=== PATIENT | female | born 1950 | race Caucasian/White ===

== ENCOUNTER 2017-02-01 09:06 | Outpatient (CLI) | payer MEDICARE, BC ==
[~2017-02-01] VITALS: Ht 167.6 cm; Wt 119.1 kg
--- NOTE | ~2017-02-01 | HEMODYNAMI ---
PATIENT:CLAYTON REIS MEDICAL RECORD: [id number] : 50 LOCATION:[facility] ADMISSION DATE: 02/01/17 Generatedon:02/01/201713:00 Patient name: CLAYTON REIS Patient #: [id number] SSN: : 1950 Date of study: 02/01/2017 Page: Of Hemodynamic Procedure Report Patient Data Patient Demographics Procedure consent was obtained First Name: CLAYTON Gender: Female Last Name: SMILEY : 1950 Middle Initial: S Age: 66 year(s) Patient #: [id number] Race: Unknown Additional ID: [id number] Contact details Address: [place] [address] State: [place] City: [place] Zip code: [address] Past Medical History Allergies Allergen Reaction Date Comments Reported Other allergy 02/01/2017 Demerol,BEAN Inhibitors Admission Admission Data Admission Date: 02/01/2017 Admission Time: 9:06 Height (in.): 66 BSA: 2.24 (m2) Height (cm.): 167.64 BMI: 42.29 (kg/m2) Weight (lbs.): 262 Weight (kg.): 118.84 Lab Results Lab Result Date: 02/01/2017 Lab Result Time: 9:20 Biochemistry Name Units Result Min Max BUN mg/dl 13 --(--*-)-- 7 18 CK-MB ng/ml 0.9 --(*---)-- 0 3.6 Creatinine mg/dl 1 --(--*-)-- 0.6 1.3 Creatinine l 65 --(*---)-- 21 215 Kinase Troponin l ng/ml 0.017 --(-*--)-- 0 0.06 CBC Name Units Result Min Max Hematocrit % 46 --(-*--)-- 42 54 Hemoglobin g/dl 15.1 --(-*--)-- 13.5 17.5 Procedure Procedure Types Cath Procedure Diagnostic Procedure [facility] w/Coronaries PCI Procedure Coronary Stent Initial Miscellaneous Procedures Moderate Sedation up to 15 minutes Procedure Description Procedure Date Procedure Date: 02/01/2017 Procedure Start Time: 12:46 Procedure End Time: 12:59 Procedure Staff Name Function Raheem Mao MD Performing Physician Jenna Sweeney RN Nurse Sander Tian RT Monitor Evgeny Mcdowell RT Scrub Procedure Data Cath Procedure Fluoroscopy Diagnostic fluoroscopy Total fluoroscopy Time: 2.6 time: 2.6 min min Diagnostic fluoroscopy Total fluoroscopy dose: 396 dose: 396 mGy mGy Contrast Material Contrast Material Type Amount (ml) Isovue 300 87 Entry Location Entry Primary Successful Side Size Upsize Upsize Entry Closure Succes sful Closure Location (Fr) 1 (Fr) 2 (Fr) Remarks Device Remarks Femoral Right 5 Fr 6 Fr Exoseal artery Short Estimated blood loss: 10 ml Diagnostic catheters Device Type Used For End Catheter Placement Cordis 5Fr Pigtail Procedure Catheter (MP) Cordis 5Fr JL 4.0 Procedure Catheter (MP) Cordis 5Fr 3DRC Catheter Procedure (MP) Procedure Complications No complications Procedure Medications Medication Administration Route Dosage Oxygen NC 2 l/min Heparin Flush Bag added to field 2 bags (1000units/500ml NS) Lidocaine 2% added to field 20 Versed I.V. 1 mg Fentanyl I.V. 50 mcg Versed I.V. 1 mg Fentanyl I.V. 50 mcg Heparin Bolus I.V. 4000 units Versed I.V. 1 mg Fentanyl I.V. 50 mcg Hemodynamics Rest BSA: 2.24 (m2) HGB: 15.1 (g/dl) O2 Consumption: Estimated: 228.48 (ml/min) O2 Co nsumption indexed: Estimated:102 (ml/min/m) Heart Rate: 93 (bpm) Snapshots Pre Cath Intra NCS Post Cath Vital Signs Time Heart Resp SPO2 etCO2 CD6mquv NIBP (mmHg) Rhythm Pain Sedation Rate (ipm) (%) (mmHg) (mmHg) Status Level (bpm) 12:36:58 95 17 96 0 0 138/93(115) NSR 0 (11) 10(A) , No pain 12:41:14 96 15 99 0 0 143/91(117) NSR 0 (11) 10(A) , No pain 12:45:30 91 16 98 0 0 121/71(102) NSR 0 (11) 10(A) , No pain 12:49:44 90 17 98 0 0 117/78(97) NSR 0 (11) 9(A) , No pain 12:53:52 96 16 96 0 0 107/80(99) NSR 0 (11) 9(A) , No pain 12:56:50 100 16 95 0 0 125/81(106) NSR 0 (11) 10(A) , No pain Medications Time Medication Route Dose Verified Delivered Reason Notes Effectiveness by by 12:38:42 Oxygen NC 2 Raheem Jenna Per physician l/min Daylin Sweeney RN 12:38:51 Heparin Flush added 2 Raheem Raheem used for Bag to bags Daylin Mao MD procedure (1000units/500ml field NS) 12:38:58 Lidocaine 2% added 20ml Raheem Raheem used for to vial Daylin Mao MD procedure field 12:45:00 Versed I.V. 1 mg Raheem Jenna for sedation Daylin Sweeney RN 12:45:07 Fentanyl I.V. 50 Raheem Jenna for sedation mcg Daylin Sweeney RN 12:47:04 Versed I.V. 1 mg Raheem Jenna for sedation Daylin Sweeney RN 12:47:15 Fentanyl I.V. 50 Raheem Jenna for sedation mcg Daylin Sweeney RN 12:49:06 Versed I.V. 1 mg Raheem Jenna for sedation Daylin Sweeney RN 12:49:13 Fentanyl I.V. 50 Raheem Jenna for sedation mcg Daylin Sweeney RN 12:51:46 Heparin Bolus I.V. 4000 Raheem Jenna for dose units Daylin Sweeney RN anticoagulation verified [facility] dr mao Procedure Log Time Note 12:10:06 Evgeny Mcdowell RT(R) sent for patient. Start room use. 12:22:07 Time tracking: Regular hours 12:22:12 Plan of Care:Hemodynamics will remain stable., Cardiac rhythm will remain stable., Comfort level will be maintained., Respiratory function will remain adequate., Patient/ family verbilizes understanding of procedure., Procedure tolerated without complication., Recovers from procedure without complications.. 12:30:12 Patient received from Pre/Post Procedure Room to CCL 1 Alert and oriented. Tansferred to table in Supine position. 12:34:22 Warm blankets applied, and jennifer hugger turned on for patient comfort. 12:34:22 Correct patient and procedure confirmed by team. 12:34:23 Signed procedure consent form obtained from patient. 12:34:24 ECG and BP/O2 sat monitors applied to patient. 12:35:47 Vital chart was started 12:35:49 Baseline sample Acquired. 12:35:55 Rhythm: sinus rhythm 12:35:58 Full Disclosure recording started 12:38:42 Oxygen 2 l/min NC was administered by Jenna Sweeney RN; Per physician; 12:38:51 Heparin Flush Bag (1000units/500ml NS) 2 bags added to field was administered by Raheem Mao MD; used for procedure; 12:38:58 Lidocaine 2% 20ml vial added to field was administered by Raheem Mao MD; used for procedure; 12:42:52 H&P Date Dictated: 01/30/2017 Within 30 days and on chart., H&P Addendum completed by physician on day of procedure. (MUST COMPLETE FOR ALL OUTPATIENTS). 12:42:54 Pre-procedure instructions explained to patient. 12:42:55 Family in waiting room. 12:42:56 Patient NPO since Midnight. 12:43:11 Patient allergic to Other allergyDemerol,BEAN Inhibitors 12:43:14 Is the patient allergic to Iodine/contrast media? No. 12:43:15 Is patient on blood thinner?Yes 12:43:17 ACC The patient was administered the following blood thiners within the last 24 hours: ACCPlavix 12:43:20 Patient diabetic? No. 12:43:47 Previous problem with sedation/anesthesia? Yes Difficulty waking up / Low BP 12:43:50 Snore? Yes 12:43:51 Sleep apnea? Yes 12:43:52 Deviated septum? No 12:43:53 Opens mouth fully? Yes 12:43:54 Sticks out tongue? Yes 12:44:01 Airway obstruction? Yes Asthma 12:44:15 Dentures? No ? 12:44:17 Pre procedure: right dorsailis pedis pulse 2+ Normal; easily identifiable; not easily obliterated 12:44:19 Patient pain scale 0/10 ?. 12:44:24 IV patent on arrival in left wrist with 0.9% NaCl at KVO. 12:44:30 Lab results completed and on chart. 12:44:33 Right groin area was prepped with chlora-prep and draped in sterile fashion 12:44:34 Alarms reviewed by R. N. 12:44:34 Sharps counted by scrub and verified by R.N. 12:44:39 Use device set Femoral Dx 12:44:40 Tegaderm 4 x 4 opened to sterile field. 12:44:41 Acist Manifold opened to sterile field. 12:44:42 Acist Hand Control opened to sterile field. 12:44:42 Acist Syringe opened to sterile field. 12:44:43 Bag Decanter opened to sterile field. 12:44:43 Medline Cath Pack opened to sterile field. 12:44:44 Terumo 5Fr [place] Sheath opened to sterile field. 12:44:44 St Griffin 260cm J .035 wire opened to sterile field. 12:44:45 Diagnostic Infinity 5Fr Multipack catheter opened to sterile field. 12:44:52 Physician arrived 12:44:53 --------ALL STOP TIME OUT------ 12:44:53 Final Timeout: patient, procedure, and site verified with staff and physician. All members of the team are in agreement. 12:44:55 Right groin site verified by team. 12:44:57 Physical assessment completed. ASA score P 2 - A patient with mild systemic disease as per Raheem Mao MD. 12:45:00 Versed 1 mg I.V. was administered by Jenna Sweeney RN; for sedation; 12:45:00 Sedation plan: IV Moderate Sedation Versed, Fentanyl 12:45:07 Fentanyl 50 mcg I.V. was administered by Jenna Sweeney RN; for sedation; 12:46:00 Procedure started. 12:46:03 Local anesthetic to right femoral artery with Lidocaine 2% by Raheem Mao MD.INITIAL ACCESS ONLY 12:46:10 A 5 Fr sheath was inserted into the Right Femoral artery 12:47:04 Versed 1 mg I.V. was administered by Jenna Sweeney RN; for sedation; 12:47:15 Fentanyl 50 mcg I.V. was administered by Jenna Sweeney RN; for sedation; 12:47:51 Lab Result : Creatinine 1 mg/dl 12:47:51 Lab Result : BUN 13 mg/dl 12:47:51 Lab Result : Troponin l 0.017 ng/ml 12:47:51 Lab Result : Hemoglobin 15.1 g/dl 12:47:51 Lab Result : CK-MB 0.9 ng/ml 12:47:51 Lab Result : Creatinine Kinase 65 l 12:47:51 Lab Result : Hematocrit 46 % 12:49:06 Versed 1 mg I.V. was administered by Jenna Sweeney RN; for sedation; 12:49:06 A Cordis 5Fr Pigtail Catheter (MP) was advanced over the wire and used for Procedure. 12:49:11 LV gram done using WATERMAN 12:49:13 Fentanyl 50 mcg I.V. was administered by Jenna Sweeney RN; for sedation; 12:49:15 Injector settings: Ml/sec: 10, Volume: 20, 12:49:22 Catheter exchanged over wire. 12:49:27 A Cordis 5Fr JL 4.0 Catheter (MP) was advanced over the wire and used for Procedure. 12:49:29 LCA angiography performed. 12:49:43 Terumo 6Fr [place] Sheath opened to sterile field. 12:50:27 Catheter exchanged over wire. 12:50:32 A Cordis 5Fr 3DRC Catheter (MP) was advanced over the wire and used for Procedure. 12:50:34 RCA angiography performed. 12:50:36 Catheter exchanged over wire. 12:51:00 Sheath upsized to a 6 Fr Short. 12:51:46 Heparin Bolus 4000 units I.V. was administered by Jenna Sweeney RN; for anticoagulation; dose verified wt dr mao 12:51:53 Webster Whisper J 300cm 0.014 guide wire opened to sterile field. 12:51:55 [employer] BasixCompak Inflation Kit opened to sterile field. 12:52:19 Cordis 6FR XBLAD 3.5 guide catheter opened to sterile field. 12:52:47 6 Fr xblad 3.5 guide catheter was inserted over the wire 12:52:51 whisper wire advanced. 12:53:59 Wire advanced across lesion. 12:55:03 Inflation Number: 1 A Biofreedom 2.5 x 11 stent (No Cost Implant) was prepped and advanced across the Mid LAD. The stent was deployed at 11 CARLOS for 0:10 (min:sec). 12:55:04 Stent catheter was removed intact over wire. 12:55:05 Wire removed. 12:55:05 Guide catheter removed. 12:55:18 Cordis 6Fr Exoseal opened to sterile field. 12:55:24 Sheath removed intact; hemostasis achieved with Exoseal to the Right Femoral artery. 12:55:26 Procedure ended.(Physican Out) 12:55:40 Fluoroscopy time 02.60 minutes. 12::44 Fluoroscopy dose: 396 mGy 12:55:44 Flurop Dose total: 396 12:55:49 Contrast amount:Isovue 300 87ml. 12:56:18 Sharps counted by scrub and verified by R.N. 12:56:22 Insertion/operative site no bleeding no hematoma. 12:56:25 Post-op/insertion site Right Femoral artery dressed using a 4 x 4 and Tegaderm. 12:56:29 Post right femoral artery:stable, soft, clean and dry 12:56:31 Post Procedure Pulses reassessed and unchanged 12:56:34 Post-procedure physical assessment completed. ASA score P 2 - A patient with mild systemic disease as per Raheem Mao MD. 12:56:36 Post procedure rhythm: unchanged. 12:56:38 Estimated blood loss: 10 ml 12:56:43 Post procedure instruction explained to patient.Patient verbalizes understanding. 12:57:31 Patient needs reinforcement of post procedure teaching. 12:57:39 Procedure type changed to Cath procedure, Diagnostic procedure, LHC, LHC w/Coronaries, PCI procedure, Coronary Stent Initial, Miscellaneous Procedures, Moderate Sedation up to 15 minutes 12:59:26 Procedure and supply charges have been captured, reviewed, submitted and are correct. 12:59:29 Procedure Complication : No complications 12:59:30 Vital chart was stopped 12:59:31 See physician's report for complete and final results. 12:59:33 Report given to Pre/Post Procedure Room. 12:59:34 Patient transfered to Pre/Post Procedure Room with Stretcher. 12:59:36 Procedure ended. 12:59:36 Full Disclosure recording stopped 12:59:55 End room use (Document Last) 13:00:22 Patient Height : 66 cm 13:00:26 Patient Weight : 262 kg Intervention Summary Intervention Notes Time ActionType Lesion and Equipment Action# Pressure Duration Attributes Used 12:55:03 Place stent Mid LAD Biofreedom 1 11 00:10 2.5 x 11 stent (No Cost Implant) Device Usage Item Name Manufacture Quantity Catalog Hospital Part Current Minimal Lot# / Number Charge Number Stock Stock Serial# Code Tegaderm 4 1 [id number] [id number] 5 x 4 Acist Acist 1 74322 794841 491684 051221 5 Manifold Medical [employer] Inc Acist Hand Acist 1 89842 169065 994670 299383 5 Control Medical Systems Inc Acist Acist 1 52304 608224 432015 589982 20 Syringe Medical Systems Inc Bag Microtek 1 2002S 013840 11229 415686 5 DecPermeon [employer]olog[employer] Inc. Medline Cardinal 1 [id number] 837956 26486 908630 5 Cath Pack Health Terumo 5Fr Terumo 1 [id number] 124549 519648 007549 [address] Griffin 1 558331 042927 415553 550241 30 260cm J .035 wire Diagnostic Cardinal 1 [id number] 022363 25071 812484 30 Infinity Health 5Fr Multipack catheter Cordis 5Fr Cardinal 1 207547 5 Pigtail Health Catheter (MP) Cordis 5Fr Cardinal 1 117172 5 JL 4.0 Health Catheter (MP) Terumo 6Fr Terumo 1 [id number] 436754 473209 694677 40 [place] Sheath Cordis 5Fr Cardinal 1 659427 5 3DRC Health Catheter (MP) Webster Webster 1 [id number] 473863 739198 107856 5 Whisper J Vascular 300cm 0.014 guide wire Merit Merit 1 DH0339 260229 001719 002668 15 Voyage Medical Medical Inflation Kit Cordis 6FR Cardinal 1 [id number] 564981 686057 306896 10 XBLAD 3.5 Health guide catheter Biofreedom Biosensors 1 RC2-2511 764563 015039 5 [id number] 2.5 x 11 [place] SA stent (No Cost Implant) Cordis 6Fr Cardinal 1 EX600 264724 420175 037684 10 [facility] Signature Audit [place] Stage Time Signature Unsigned Intra-Procedure 02/01/2017 Sander Tian 1:00:48 PM RT(R) Signatures Monitor : Sander Tian RT Signature : Date : Time : [facility] [address] [place] [address]
[~2017-02-01 09:06] MED LIST: CHLOR-TRIMETON4 MG PO; COUMADIN5 MG PO; FEXOFENADINE HC60 MG PO; FLUTICASONE PRO16 GM NS; GLUCOTROL 5 MG T5 MG PO; MOBIC7.5 MG PO; PERCOCET 10/3251 TA1 PO; PREMARIN0.3 MG PO; PRILOSEC20 MG PO; PRINIVIL10 MG PO; PROVENTIL HFA6.7 GM INH
[2017-02-01] MEDS ORDERED: MOBIC7.5 MG PO (09:33)
[2017-02-01] MEDS ORDERED: COZAAR25 MG PO (09:34)
[2017-02-01] MEDS ORDERED: CLARITIN 10 MG10 MG PO (09:35)
[2017-02-01] MEDS ORDERED: VITAMIN B-1250 MCG PO (09:36)
[2017-02-01] MEDS ORDERED: HYDROCODON-ACE1 EAC9 PO (09:37)
[2017-02-01] MEDS ORDERED: VITAMIN D3400 UNI1 PO (09:37)
[2017-02-01] MEDS ORDERED: PROMETHAZINE V120 M1 PO (09:38)
[2017-02-01 09:41] VITALS: BP 149/99; Ht 167.6 cm; Wt 119.1 kg
[2017-02-01 09:56] LABS: BASOPHILS 0.5 % (0-2); EOSINOPHILS 1.5 % (0-7); HEMOGLOBIN 15.1 g/dL (12-16); IMMATURE GRANULOCYTES 0.3 % (0-5); LYMPHOCYTES 21.2 % (15-50); MCH 29.2 pg (26.0-34.0); MCHC 32.8 g/dL (31.0-37.0); MEAN PLATELET VOLUME 10.1 fL (7.4-10.4); MONOCYTES 7.1 % (2-11); NEUTROPHILS 69.4 % (40-80); RBC 5.17 10x6/uL (4.00-5.40); RDW 13.2 % (11.5-14.5)
[2017-02-01 10:01] LABS: PLATELET COUNT 196 10x3/uL (130-400)
[2017-02-01 10:22] LABS: CALC OSMOLALITY 278 mosm/kg (275-300); CALCIUM 9.4 mg/dL (8.5-10.1); CARBON DIOXIDE 25.5 mmol/L (21.0-32.0); CHLORIDE - SERUM 104 mmol/L (98-107); CKMB 0.9 U/L (0.0-3.6); CREATINE KINASE 65 UL (21-215); GLUCOSE 107 mg/dL (74-106); POTASSIUM - SERUM 3.8 mmol/L (3.5-5.1); SODIUM 140 mmol/L (136-145); TROPONIN-I < 0.017 ng/mL (0.000-0.060); UREA NITROGEN 13 mg/dL (7-18); eGFR NON AFRICAN AMERICAN 59 mL/min (90-120)
--- NOTE | 2017-02-01 13:30 | NUR ---
RIGHT GROIN CDI, NO HEMATOMA OR BLEEDING AT SITE. DENIES PAIN
--- NOTE | 2017-02-01 14:00 | NUR ---
NO CHANGE IN GROIN, DIET TABBY, DENIES NEEDS
[2017-02-01] MEDS ORDERED: PLAVIX75 MG PO (14:02)
--- NOTE | 2017-02-01 16:45 | NUR ---
IV D'C WITH CATH TIP INTACT, WRITTEN AND VERBAL INSTRUCTIONS GIVEN TO PT AND FAMILY, D'C HOME WITH FAMILY. EKG AND POST LAB DRAWN.
--- NOTE | 2017-02-02 08:49 | OP ---
PATIENT NAME: CLAYTON REIS MEDICAL RECORD: [id number] :50 LOCATION:D.CAT ADMISSION DATE: SURGEON: JACEY LORENZ MD DATE OF OPERATION: 02/01/2017 PROCEDURES: 1. PTCA stent LAD. 2. Left heart catheterization. 3. Selective coronary angiography. 4. Left ventriculogram. INDICATION: Angina and coronary artery disease. DESCRIPTION OF PROCEDURE: After informed consent was obtained and after detailed explanation of risks, benefits as well as alternative therapies, the patient elected to proceed with angiogram and angioplasty. The right femoral area was prepped and draped in normal sterile fashion. The right femoral artery was cannulated via modified Seldinger technique with placement of 6-[place] sheath. All catheters exchanged through this sheath. FINDINGS: Left ventriculogram was performed in standard 30-degree WATERMAN view, reveals good cardiac wall motion throughout all segments. Overall ejection fraction estimated at 55%. SELECTIVE CORONARY ANGIOGRAPHY: 1. Left main showed no significant angiographic disease. 2. Left anterior descending has a discrete 90% to 95% stenosis in the mid vessel. 3. Left circumflex shows moderate irregularities, but no flow-limiting stenosis. 4. Right coronary has moderate irregularities, but no flow-limiting stenosis. PTCA STENT OF THE LAD: The stent used was a 2.5 x 11 mm BioFreedom. Result was 0% residual stenosis. OVERALL IMPRESSION: Successful percutaneous transluminal coronary angioplasty stent of the left anterior descending going from 90% initial stenosis with SE 3 flow to 0% residual stenosis with SE 3 flow. TRANSINT:[id number] Voice Confirmation ID: [id number] DOCUMENT ID: [id number] JACEY LORENZ MD at 0849 CC: [id number] DICTATION DATE: 02/01/17 1300 LEAD INGOT MOLDER: 02/01/17 2310 [facility] CLI 02/01/17 [place] [address]
== END 2017-02-01 17:00 | disposition home or self-care (01) ==
LOC: D.CATH 09:06
PROVIDERS: Internal Medicine Interventional Cardiology
DX: I25.119 Atherosclerotic heart disease of native coronary artery with unspecified angina pectoris (principal); Z00.6 Encounter for examination for normal comparison and control in clinical research program; Z01.812 Encounter for preprocedural laboratory examination
CPT/HCPCS: 93458; C9600

== ENCOUNTER 2017-03-16 16:53 | Emergency (ER) | payer MEDICARE, BC ==
[2017-02-01 09:41] VITALS: BMI 42.3
[~2017-03-16 16:53] MED LIST changes: +CLARITIN 10 MG10 MG PO; +COZAAR25 MG PO; +HYDROCODON-ACE1 EAC9 PO; +PLAVIX75 MG PO; +PROMETHAZINE V120 M1 PO; +VITAMIN B-1250 MCG PO; +VITAMIN D3400 UNI1 PO
[2017-03-16 18:29] LABS: BASOPHILS 0.5 % (0-2); EOSINOPHILS 1.9 % (0-7); HEMATOCRIT 44.1 % (36.0-48.0); HEMOGLOBIN 14.4 g/dL (12-16); IMMATURE GRANULOCYTES 0.2 % (0-5); LYMPHOCYTES 30.5 % (15-50); MCHC 32.7 g/dL (31.0-37.0); MCV 88.9 fL (80.0-100.0); MONOCYTES 10.4 % (2-11); NEUTROPHILS 56.5 % (40-80); PLATELET COUNT 199 10x3/uL (130-400); RBC 4.96 10x6/uL (4.00-5.40); RDW 13.5 % (11.5-14.5); WBC 4.2 10x3/uL (4.8-10.8)
[2017-03-16 18:43] LABS: ALBUMIN 3.6 g/dL (3.4-5.0); ALKALINE PHOSPHATASE 83 U/L (46-116); ALT (SGPT) 28 U/L (10-68); BILIRUBIN - TOTAL 0.45 mg/dL (0.2-1.3); CALC OSMOLALITY 280 mosm/kg (275-300); CALCIUM 9.1 mg/dL (8.5-10.1); CHLORIDE - SERUM 105 mmol/L (98-107); CREATININE - SERUM 0.8 mg/dL (0.6-1.3); GLUCOSE 95 mg/dL (74-106); POTASSIUM - SERUM 3.9 mmol/L (3.5-5.1); PROTEIN - SERUM 7.4 g/dL (6.4-8.2); SODIUM 141 mmol/L (136-145); UREA NITROGEN 12 mg/dL (7-18); eGFR NON AFRICAN AMERICAN 76 mL/min (90-120)
[2017-03-16 18:59] LABS: CHOL - HDL RATIO 3.5 ratio (2.3-4.1); CHOLESTEROL, TOTAL 222 mg/dL (0-200); CKMB 0.4 U/L (0.0-3.6); CREATINE KINASE 54 UL (21-215); HDL CHOLESTEROL 63 mg/dL (32-96); LDL CHOLESTEROL 129 mg/dL (0-100); TRIGLYCERIDE 151 mg/dL (30-200); TROPONIN-I < 0.017 ng/mL (0.000-0.060)
== END 2017-03-16 20:30 | disposition home or self-care (01) ==
LOC: D.ER 16:53
PROVIDERS: Emergency Medicine
DX: R07.9 Chest pain, unspecified (principal); R05 Cough; R06.02 Shortness of breath

== ENCOUNTER 2018-12-30 20:48 | Observation (INO) | payer MEDICARE, BC ==
[~2018-12-30] VITALS: Ht 167.6 cm; Wt 120.7 kg
--- NOTE | ~2018-12-30 | HEMODYNAMI ---
PATIENT:CLAYTON REIS MEDICAL RECORD: [id number] : 50 [facility] ADMISSION DATE: 12/31/18 Generatedon:12/31/201813:08 Patient name: CLAYTON REIS Patient #: [id number] SSN: : 1950 Date of study: 12/31/2018 Page: Of Hemodynamic Procedure Report Patient Data Patient Demographics Procedure consent was obtained First Name: CLAYTON Gender: Female Last Name: SMILEY : 1950 [facility] Initial: S Age: 68 year(s) Patient #: [id number] Race: Unknown Additional ID: [id number] Contact details Address: [address] [address] State: [place] City: [place] Zip code: [address] Past Medical History Allergies Allergen Reaction Date Comments Reported Other allergy 02/01/2017 Demerol,BEAN Inhibitors BEAN inhibitors 12/31/2018 Demerol 12/31/2018 Admission Admission Data Admission Date: 12/31/2018 Admission Time: 0:18 Room #: D.2114 Procedure Procedure Types Cath Procedure Diagnostic Procedure [facility] w/Coronaries Sedation Charges Moderate Sedation up to 15 minutes Procedure Description Procedure Date Procedure Date: 12/31/2018 Procedure Start Time: 12:42 Procedure End Time: 13:08 Procedure Staff Name Function Tu Vuong MD Performing Physician Audra Martin RT Monitor Sander Tian RT Scrub Dmitriy Gentile RT Liquor Grinding Mill Operator Paris Hunt RN Nurse Procedure Data Cath Procedure Fluoroscopy Diagnostic fluoroscopy Total fluoroscopy Time: 3.9 time: 3.9 min min Diagnostic fluoroscopy Total fluoroscopy dose: 916 dose: 916 mGy mGy Contrast Material Contrast Material Type Amount (ml) Isovue 300 130 Entry Location Entry Primary Successful Side Size Upsize Upsize Entry Closure Succes sful Closure Location (Fr) 1 (Fr) 2 (Fr) Remarks Device Remarks Femoral Right 5 Fr 6 Fr Exoseal artery Short Estimated blood loss: 10 ml Diagnostic catheters Device Type Used For End Catheter Placement MULTIPACK JL 4.0 5Fr Left Coronary catheter Angiography MULTIPACK 3DRC 5Fr Right Coronary catheter Angiography MULTIPACK Pigtail 5 Fr LV Angiography catheter Procedure Complications No complications Procedure Medications Medication Administration Route Dosage Oxygen etCO2 Nasal cannula 2 l/min Lidocaine 2% added to field 20 Heparin Flush Bag added to field 2 bags (1000units/500ml NS) 0.9% NaCl I.V. 100 ml/hr Versed I.V. 1 mg Fentanyl I.V. 50 mcg Versed I.V. 1 mg Fentanyl I.V. 50 mcg Versed I.V. 1 mg Fentanyl I.V. 50 mcg Heparin Bolus I.V. 44637 units Fentanyl I.V. 50 mcg Plavix P.O. 600 mg Hemodynamics Rest Heart Rate: 82 (bpm) Pressure Samples Time Site Value (mmHg) Purpose Heart Use Rate(bpm) 12:51 LV 140/-6,14 EDP 102 12:51 AO 131/71(97) Pullback 93 12:51 LV 144/-10,9 Pullback 93 Gradients Valve Time Site 1 Site 2 Mean SEP/DFP Peak To Heart Use (mmHg) (sec/min) Peak Rate (mmHg) (bpm) Aortic 12:51 LV AO 14 26 13 93 144/-10,9 131/71(97) Calculations Valve P-P Mean Valve Index Valve Source Name Gradient Area Flow (cm2) Aortic 13 14 13 14 Snapshots Pre Cath Intra NCS Post Cath Vital Signs Time Heart Resp SPO2 etCO2 NIBP (mmHg) Rhythm Pain Sedation Rate (ipm) (%) (mmHg) Status Level (bpm) 12:28:55 85 21 95 0 143/84(121) NSR 0 (11) 10(A) , No pain 12:33:11 83 17 96 35.2 135/86(102) NSR 0 (11) 10(A) , No pain 12:37:23 83 12 94 37.5 124/76(104) NSR 0 (11) 10(A) , No pain 12:41:32 90 14 93 38.2 129/84(104) NSR 0 (11) 10(A) , No pain 12:45:44 94 12 94 38.9 133/86(105) NSR 0 (11) 9(A) , No pain 12:49:58 96 14 94 38.2 126/80(107) NSR 0 (11) 9(A) , No pain 12:54:12 95 11 93 28.5 127/78(100) NSR 0 (11) 9(A) , No pain 12:58:29 96 12 93 20.2 117/70(100) NSR 0 (11) 9(A) , No pain 13:02:38 101 13 95 38.2 125/81(93) NSR 0 (11) 10(A) , No pain 13:06:50 95 14 95 37.4 138/80(101) NSR 0 (11) 10(A) , No pain Medications Time Medication Route Dose Verified Delivered Reason Notes Effectiveness by by 12:26:48 Oxygen etCO2 2 Tu Buffie used for Nasal l/min Chilo Hunt RN procedure cannula 12:27:15 Lidocaine 2% added 20ml Tu Tu for local to vial Chilo Vuong MD anesthetic field 12:27:22 Heparin Flush added 2 Tu Tu used for Bag to bags Chilo Vuong MD procedure (1000units/500ml field NS) 12:27:34 0.9% NaCl I.V. 100 Tu Buffie Per physician ml/hr Chilo Hunt RN 12:39:31 Versed I.V. 1 mg Tu Buffie for sedation Chilo Hunt RN 12:39:38 Fentanyl I.V. 50 Tu Buffie for sedation mcg Chilo Hunt RN 12:42:09 Versed I.V. 1 mg Tu Buffie for sedation Chilo Hunt RN 12:42:13 Fentanyl I.V. 50 Tu Buffie for sedation mcg Chilo Hunt RN 12:47:52 Versed I.V. 1 mg Tu Buffie for sedation Chilo Hunt RN 12:48:00 Fentanyl I.V. 50 Tu Buffie for sedation mcg Chilo Hunt RN 12:55:57 Heparin [place]us [place].V. 91579 Tu Buffie for verif ied units Chilo Hunt RN anticoagulation with dr vuong 12:56:47 Fentanyl I.V. 50 Tu Buffie for sedation mcg Chilo Hunt RN 13:04:05 Plavix P.O. 600 Tu Buffie for mg Chilo Hunt RN antiplatelet therapy Procedure Log Time Note 12:15:23 Dmitriy Gentile RT(R) sent for patient. Start room use. 12:15:24 Time tracking: Regular hours (M-F 7:00 - 5:00) 12:15:29 Plan of Care:Hemodynamics will remain stable., Cardiac rhythm will remain stable., Comfort level will be maintained., Respiratory function will remain adequate., Patient/ family verbilizes understanding of procedure., Procedure tolerated without complication., Recovers from procedure without complications.. 12:23:16 Patient received from PCU to CCL 2 Alert and oriented. Tansferred to table in Supine position. 12:23:17 Warm blankets applied, and jennifer hugger turned on for patient comfort. 12:23:17 Correct patient and procedure confirmed by team. 12:23:18 Signed procedure consent form obtained from patient. 12:23:19 ECG and BP/O2 sat monitors applied to patient. 12:23:20 Full Disclosure recording started 12:26:48 Oxygen 2 l/min etCO2 Nasal cannula was administered by Paris Hunt RN; used for procedure; 12:27:15 Lidocaine 2% 20ml vial added to field was administered by Tu Vuong MD; for local anesthetic; 12:27:22 Heparin Flush Bag (1000units/500ml NS) 2 bags added to field was administered by Tu Vuong MD; used for procedure; 12:27:34 0.9% NaCl 100 ml/hr I.V. was administered by Paris Hunt RN; Per physician; 12:27:46 Vital chart was started 12:30:59 Baseline sample Acquired. 12:31:02 Rhythm: sinus rhythm 12:31:20 H&P Date Dictated: 12/31/2018 Within 30 days and on chart., H&P Addendum completed by physician on day of procedure. (MUST COMPLETE FOR ALL OUTPATIENTS). 12:31:21 Pre-procedure instructions explained to patient. 12:31:22 Pre-op teaching completed and patient verbalized understanding. 12:31:24 Family in patients room. 12:31:26 Patient NPO since Midnight. 12:31:31 Patient allergic to BEAN inhibitors 12:31:33 Patient allergic to Demerol 12:31:36 Is the patient allergic to Iodine/contrast media? No. 12:31:37 Is patient on blood thinner?No 12:31:42 Patient diabetic? No. 12:31:48 Previous problem with sedation/anesthesia? No ? 12:31:48 Snore? Yes 12:31:50 Sleep apnea? No 12:31:51 Deviated septum? No 12:31:51 Opens mouth fully? Yes 12:31:52 Sticks out tongue? Yes 12:31:54 Airway obstruction? No ? 12:31:56 Dentures? No ? 12:32:00 Pre procedure: right dorsailis pedis pulse 2+ Normal; easily identifiable; not easily obliterated 12:32:03 Patient pain scale 0/10 ?. 12:32:11 IV patent on arrival in right forearm with 0.9% NaCl at [facility]. 12:32:15 Lab results completed and on chart. 12:32:18 Right groin area was prepped with chlora-prep and draped in sterile fashion 12:32:20 Alarms reviewed by R. N. 12:32:20 Sharps counted by scrub and verified by R.N. 12:32:28 Use device set Femoral Dx 12:32:29 ACIST Syringe (79747) opened to sterile field. 12:32:30 Bag Decanter (2002S) opened to sterile field. 12:32:31 Medline Cath Pack ([id number]) opened to sterile field. 12:32:45 DIAGNOSTIC WIRE .035 260cm J wire (926118) opened to sterile field. 12:32:46 ACIST Hand Control (84221) opened to sterile field. 12:32:47 ACIST Manifold (66070) opened to sterile field. 12:32:47 DIAGNOSTIC Multipack 5Fr catheter set ([id number]) opened to sterile field. 12:32:48 Tegaderm 4 x 4 (1626W) opened to sterile field. 12:32:49 SHEATH 5FR [place] (UEH282) opened to sterile field. 12:37:56 Final Timeout: patient, procedure, and site verified with staff and physician. All members of the team are in agreement. 12:37:58 Right groin site verified by team. 12:38:01 Maximum allowable Isovue 300 dose 300ml. Physician notified. (300ml for normal creatinines. For patients with creatinine of 1.7 or higher multiply weight(kg) x 5 divided by creatinine.) 12:38:04 Fire Safety Assessment: A--An alcohol-based skin anteseptic being used preoperatively., C--Open oxygen or nitrous oxide is being used., D--An ESU, laser, or fiber-optic light is being used. 12:38:06 Physical assessment completed. ASA score P 2 - A patient with mild systemic disease as per Tu Vuong MD. 12:38:09 Sedation plan: IV Moderate Sedation Medication:Versed, Fentanyl 12:39:31 Versed 1 mg I.V. was administered by Paris Hunt RN; for sedation; 12:39:38 Fentanyl 50 mcg I.V. was administered by Paris Hutn RN; for sedation; 12:42:09 Versed 1 mg I.V. was administered by Paris Hunt RN; for sedation; 12:42:12 Procedure started. 12:42:13 Fentanyl 50 mcg I.V. was administered by Paris Hunt RN; for sedation; 12:42:16 Local anesthetic to right femoral artery with Lidocaine 2% by Tu Vuong MD.INITIAL ACCESS ONLY 12:42:22 A 5 Fr sheath was inserted into the Right Femoral artery 12:42:26 Zero performed for pressure channel P1 12:43:16 A MULTIPACK JL 4.0 5Fr catheter was advanced over the wire and used for Left Coronary Angiography. 12:47:52 Versed 1 mg I.V. was administered by Paris Hunt RN; for sedation; 12:48:00 Fentanyl 50 mcg I.V. was administered by Paris Hunt RN; for sedation; 12:48:01 Catheter removed. 12:48:30 A MULTIPACK 3DRC 5Fr catheter was advanced over the wire and used for Right Coronary Angiography. 12:48:32 Use device set VUONG PCI 12:48:34 SHEATH 6FR [place] (OMS406) opened to sterile field. 12:48:57 TUBING High Pressure Extension Tubing (Vuong) ([id number]) opened to sterile field. 12:48:58 INFLATOR Merit BasixCompak (XI4585) opened to sterile field. 12:49:00 BMW 300cm [employer] 2 J wire ([id number]) opened to sterile field. 12:49:35 Catheter removed. 12:49:45 A MULTIPACK Pigtail 5 Fr catheter was advanced over the wire and used for LV Angiography. 12:50:02 GUIDE 6FR XBLAD 3.5 catheter ([id number]) opened to sterile field. 12:51:22 LV gram done using WATERMAN 12:51:23 LV hemodynamics recorded. 12:51:25 Injector settings: Ml/sec: 10, Volume: 20, 12:51:30 EF : 60 % 12:51:55 Catheter removed. 12:52:06 Sheath upsized to a 6 Fr Short. 12:54:21 6 Fr XBLAD 3.5 guide catheter was inserted over the wire 12:55:57 Heparin Bolus 39660 units I.V. was administered by Paris Hunt RN; for anticoagulation; verified with dr vuong 12:56:47 Fentanyl 50 mcg I.V. was administered by Paris Hunt RN; for sedation; 12:57:04 BMW wire advanced. 13:02:55 Place stent Inflation Number: 1 A COBRA RX 3.0 X 24 Stent was prepped and advanced across the Prox LAD. The stent was deployed at 10 CARLOS for 0:13 (min:sec). 13:03:23 Stent catheter was removed intact over wire. 13:03:23 Wire removed. 13:03:24 Guide catheter removed. 13:03:33 Sheath removed intact; hemostasis achieved with Exoseal to the Right Femoral artery. 13:03:39 Procedure ended.(Physican Out) 13:03:52 Procedure type changed to Cath procedure, Diagnostic procedure, LHC, LHC w/Coronaries, Sedation Charges, Moderate Sedation up to 15 minutes 13:04:00 Fluoroscopy time 03.90 minutes. 13:04:04 Flurop Dose total: 916 13:04:04 Fluoroscopy dose: 916 mGy 13:04:05 Plavix 600 mg P.O. was administered by Paris Hunt RN; for antiplatelet therapy; 13:04:08 Contrast amount:Isovue 300 130ml. 13:04:09 Sharps counted by scrub and verified by R.N. 13:04:12 Insertion/operative site no bleeding no hematoma. 13:04:18 Post-op/insertion site Right Femoral artery dressed using a 4 x 4 and Tegaderm. 13:04:20 Post right femoral artery:stable, clean and dry 13:04:22 Post Procedure Pulses reassessed and unchanged 13:04:26 Post-procedure physical assessment completed. ASA score P 2 - A patient with mild systemic disease as per Tu Vuong MD. 13:04:28 Post procedure rhythm: unchanged. 13:04:31 Estimated blood loss: 10 ml 13:04:32 Post procedure instruction explained to patient.Patient verbalizes understanding. 13:04:33 Patient needs reinforcement of post procedure teaching. 13:04:38 Procedure Complication : No complications 13:04:41 See physician's report for complete and final results. 13:04:47 EXOSEAL 6Fr (EX600) opened to sterile field. 13:05:40 Procedure and supply charges have been captured, reviewed, submitted and are correct. 13:08:01 Vital chart was stopped 13:08:04 Report given to PCU. 13:08:07 Patient transfered to PCU with Bed. 13:08:16 Procedure ended. 13:08:16 Full Disclosure recording stopped 13:08:20 End room use (Document Last) Intervention Summary Intervention Notes Time ActionType Lesion and Equipment Action# Pressure Duration Attributes Used 13:02:55 Place stent Prox LAD COBRA RX 1 10 00:13 3.0 X 24 Stent Device Usage Item Name Manufacture Quantity Catalog Hospital Part Current Minimal Lot# / Number Charge Number Stock Stock Serial# Code ACIST Syringe Acist 1 42843 217542 774605 619739 20 (55253) Medical Systems Inc Bag Decanter Microtek 1 2001S 415761 48717 446518 5 (2001S) Medical Inc. Medline Cath Medline 1 [id number] 807844 79936 566138 5 Pack ([id number]) DIAGNOSTIC [facility] [place] 1 333517 688149 504720 503797 30 WIRE .035 260cm J wire (177576) ACIST Hand Acist 1 36484 670434 399053 882063 5 Control Medical (18103) Systems Inc ACIST Manifold Acist 1 47503 417687 322139 626515 5 (49771) Medical Systems Inc DIAGNOSTIC Cardinal 1 CY1135 826820 93472 217665 30 Multipack 5Fr Health catheter set (IW3647) Tegaderm 4 x 4 3M 1 1626W 790532 509625 632210 5 (1626W) SHEATH 5FR Terumo 1 JHO262 985402 546734 265880 5 [place] (ZAZ064) MULTIPACK JL Cardinal 1 255387 5 4.0 5Fr Health catheter MULTIPACK 3DRC Cardinal 1 229144 5 5Fr catheter Health SHEATH 6FR Terumo 1 JUD149 159821 292505 468451 40 [place] (QCM164) TUBING High Merit 1 [id number] 837836 82404 936823 10 Pressure Medical Extension Tubing (Vuong) (AU1221M) INFLATOR Merit Merit 1 DQ7270 703703 752220 798612 15 BasixCompak Medical (DD4569) BMW 300cm Webstre 1 [id number] 685271 764037 085992 5 [employer] 2 J Vascular wire (1976819R) MULTIPACK Cardinal 1 366209 5 Pigtail 5 Fr Health catheter GUIDE 6FR Cardinal 1 [id number] 714429 871592 617628 10 XBLAD 3.5 Health catheter (02394712) COBRA RX 3.0 X Celonova 1 477421 [id number] 667328 2 [id number] 24 stent Biosciences () EXOSEAL 6Fr Cardinal 1 EX600 467769 967006 688753 10 (EX600) Health Signature Audit [place] Stage Time Signature Unsigned Intra-Procedure 12/31/2018 Audra 1:08:34 PM Counts RT(R) Signatures Monitor : Audra Signature : Counts RT Date : Time : [address] [place] [address]
[2018-12-30] MEDS ORDERED: PROTONIX20 MG (20:58)
[2018-12-30] MEDS ORDERED: ASPIRIN EC325 M1 PO (20:59)
[2018-12-30 21:04] VITALS: BP 165/97
[2018-12-30 21:09] LABS: BASOPHILS 0.3 % (0-2); EOSINOPHILS 1.9 % (0-7); HEMATOCRIT 44.8 % (36.0-48.0); HEMOGLOBIN 14.8 g/dL (12-16); IMMATURE GRANULOCYTES 0.2 % (0-5); LYMPHOCYTES 30.2 % (15-50); MCH 28.7 pg (26.0-34.0); MCV 86.8 fL (80.0-100.0); MEAN PLATELET VOLUME 10.3 fL (7.4-10.4); MONOCYTES 10.3 % (2-11); NEUTROPHILS 57.1 % (40-80); PLATELET COUNT 239 10x3/uL (130-400); RBC 5.16 10x6/uL (4.00-5.40); RDW 13.4 % (11.5-14.5); WBC 5.8 10x3/uL (4.8-10.8)
[2018-12-30 21:17] LABS: APTT 25.7 SECONDS (22.8-39.4); INR 0.99 (0.85-1.17); PROTIME 12.6 SECONDS (11.6-15.0)
[2018-12-30 21:20] LABS: ALBUMIN 3.8 g/dL (3.4-5.0); ALKALINE PHOSPHATASE 102 U/L (46-116); ALT (SGPT) 33 U/L (10-68); BILIRUBIN - TOTAL 0.42 mg/dL (0.2-1.3); CALC OSMOLALITY 280 mosm/kg (275-300); CALCIUM 9.3 mg/dL (8.5-10.1); CARBON DIOXIDE 27.9 mmol/L (21.0-32.0); CHLORIDE - SERUM 106 mmol/L (98-107); CREATININE - SERUM 0.9 mg/dL (0.6-1.3); GLUCOSE 92 mg/dL (74-106); POTASSIUM - SERUM 3.8 mmol/L (3.5-5.1); PROTEIN - SERUM 7.8 g/dL (6.4-8.2); SODIUM 141 mmol/L (136-145); UREA NITROGEN 12 mg/dL (7-18); eGFR NON AFRICAN AMERICAN 66 mL/min (90-120)
[2018-12-30 21:31] LABS: CKMB 0.5 U/L (0.0-3.6); CREATINE KINASE 69 UL (21-215); MAGNESIUM - SERUM 2.2 mg/dL (1.8-2.4)
[2018-12-30 21:32] LABS: TROPONIN-I < 0.017 ng/mL (0.000-0.060)
[2018-12-30 22:00] VITALS: BP 127/78
[2018-12-30 23:00] VITALS: BP 134/76
[2018-12-31] VITALS: BP 130/82; BP 137/90
[2018-12-31] MEDS ORDERED: HYDROCODON-ACE1 EA10 PO (01:18)
[2018-12-31 02:31] VITALS: BMI 43.0
[2018-12-31 04:00] VITALS: BP 126/66
[2018-12-31 06:41] LABS: CALC OSMOLALITY 280 mosm/kg (275-300); CALCIUM 9.3 mg/dL (8.5-10.1); CARBON DIOXIDE 25.9 mmol/L (21.0-32.0); CHLORIDE - SERUM 106 mmol/L (98-107); CKMB 0.3 U/L (0.0-3.6); CREATINE KINASE 48 UL (21-215); CREATININE - SERUM 0.9 mg/dL (0.6-1.3); GLUCOSE 101 mg/dL (74-106); POTASSIUM - SERUM 3.7 mmol/L (3.5-5.1); SODIUM 141 mmol/L (136-145); UREA NITROGEN 13 mg/dL (7-18); eGFR NON AFRICAN AMERICAN 66 mL/min (90-120)
[2018-12-31 06:49] LABS: TROPONIN-I < 0.017 ng/mL (0.000-0.060)
[2018-12-31 07:06] LABS: BASOPHILS 0.6 % (0-2); EOSINOPHILS 2.3 % (0-7); HEMATOCRIT 42.7 % (36.0-48.0); HEMOGLOBIN 13.9 g/dL (12-16); IMMATURE GRANULOCYTES 0.4 % (0-5); LYMPHOCYTES 26.7 % (15-50); MCH 28.5 pg (26.0-34.0); MCHC 32.6 g/dL (31.0-37.0); MCV 87.7 fL (80.0-100.0); MEAN PLATELET VOLUME 10.7 fL (7.4-10.4); PLATELET COUNT 228 10x3/uL (130-400); RBC 4.87 10x6/uL (4.00-5.40); RDW 13.6 % (11.5-14.5); WBC 5.2 10x3/uL (4.8-10.8)
--- NOTE | 2018-12-31 07:20 | NUR ---
RECEIVED PT IN BED AAOX4 RESP UNLABORED SKIN W/D COLOR WNL DENIES ANY NEEDS OR DISCOMFORT
[2018-12-31 08:47] VITALS: BP 129/82
[2018-12-31 13:08] VITALS: Ht 167.6 cm; Wt 120.7 kg
--- NOTE | 2018-12-31 13:32 | NUR ---
RECEIVED PT BACK FROM [facility] PPPX4 RT KRISTA MEEK C/D/I
[2018-12-31] MEDS ORDERED: PLAVIX75 MG PO (15:27)
[2018-12-31 15:50] VITALS: BP 110/66
--- NOTE | 2019-01-01 08:07 | MORECARE ---
CASE MANAGEMENT DISCHARGE SUMMARY PATIENT: CLAYTON REIS UNIT: [id number] ADM DATE: 12/31/18 AGE: 68 : 50 SEX: F ROOM/BED: D.6174 AUTHOR: SOLEDAD WILSON PHYSICIAN: REFERRING PHYSICIAN: SID ACOSTA MD DATE OF SERVICE: 01/01/19 Discharge Plan Patient Name: CLAYTON REIS Facility: [facility]:[place] : 1950 Planned Disposition: Home Anticipated Discharge Date: 12/31/18 Discharge Date: 12/31/2018 Expected LOS: 1 Initial Reviewer: [email or web address] Initial Review Date: 01/01/2019 Generated: 01/01/19 9:07 am Patient Name: CLAYTON REIS Page [id number] at 0807 All edits/amendments must be made on the electronic document DICTATION DATE: 01/01/19 08 HORTICULTURE SUPERVISOR: TISH 01/01/19 0807 RPT#: [id number] DC DATE:12/31/18 STATUS: DIS IN [facility] [address] [place] [address] END OF REPORT
== END 2018-12-31 19:12 | disposition home or self-care (01) ==
LOC: D.ER 20:48 → OBSVTIME 12-31 00:18 → D.M2 12-31 00:18
PROVIDERS: Family Medicine; ADMIT Internal Medicine Nephrology; ATTEND Internal Medicine Nephrology
DX: I25.110 Atherosclerotic heart disease of native coronary artery with unstable angina pectoris (principal); I10 Essential (primary) hypertension; M19.90 Unspecified osteoarthritis, unspecified site; F41.9 Anxiety disorder, unspecified; F32.9 Major depressive disorder, single episode, unspecified